=== PATIENT | female | born 1980 | race Caucasian/White ===

== ENCOUNTER 2022-08-07 19:04 | Emergency (ER) | payer OTHER ==
[~2022-08-07] VITALS: Ht 165.1 cm; Wt 77.0 kg
[2022-08-07 19:54] VITALS: BP 133/72
[2022-08-07] MEDS ORDERED: CLINDAMYCIN HY150 MG PO (20:16)
[2022-08-07] MEDS ORDERED: TRAMADOL HYDROC50 M1 PO (20:16)
== END 2022-08-07 21:27 | disposition home or self-care (01) ==
LOC: ED 19:04
DX: K04.7 Periapical abscess without sinus (principal); K02.9 Dental caries, unspecified; M84.68XA Pathological fracture in other disease, other site, initial encounter for fracture; Z88.0 Allergy status to penicillin